=== PATIENT | female | born 1985 | race Caucasian/White ===

== ENCOUNTER 2022-12-29 21:21 | Emergency (ER) | payer BC ==
[2022-12-29] MEDS ORDERED: Sodium Chloride 0.9% 10 ML Syringe FLUSH PRN (21:42)
[2022-12-29 22:12] LABS: ANION GAP 12.5 mEq/L (7-13); CHLORIDE,CL 102 mmol/L (98-107); SODIUM,NA 138 mmol/L (136-145)
[2022-12-29 22:13] LABS: ESTIMATED GFR 105 mL/min (>=60)
== END 2022-12-29 22:29 | disposition home or self-care (01) ==
LOC: DL.ED 21:21
DX: R07.89 Other chest pain (principal); E66.9 Obesity, unspecified; Z68.37 Body mass index [BMI] 37.0-37.9, adult
CPT/HCPCS: 36415; 71046; 80053; 81003; 83690; 83880; 84484; 84703; 85025; 93005; 93010; 99284; 99285; J3490